=== PATIENT | male | born 1980 | race Caucasian/White ===

== ENCOUNTER 2020-06-23 20:08 | Emergency (ER) | payer OTHER, SELFPAY ==
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
[2020-06-23 21:31] VITALS: BP 146/91; PULSE 62; RESP 18; TEMP 36.1; O2SAT 98; BMI 27.1
--- NOTE | 2020-06-23 22:10 | PC.NURSE ---
PT TOOK 400MG MOTRIN 3 HOURS AGO.
[2020-06-23] MEDS: Ketorolac Tromethamine 30 MG/ML VIAL IM (23:20)
[2020-06-23] MEDS: Cyclobenzaprine HCl 5 MG TABLET PO (23:21)
--- NOTE | 2020-06-23 23:59 | ED.BACK ---
HPI - Back Pain/Injury General Chief Complaint: Back Pain/Injury Stated Complaint: BACK PAIN Time Seen by Provider: 06/23/20 23:13 Source: patient Mode of arrival: ambulatory Limitations: no limitations History of Present Illness HPI Narrative: Patient presents to ED for left-sided back pain that is worse on movement. Patient states he was chopping wood for 2 hours and while turning all of a sudden his left side of his back became tight and painful. Patient denies any blunt trauma to the abdomen or back. Patient states no nausea, abdominal pain, vomiting, fever, chills, dysuria, or hematuria. MD elicited complaint: back pain Related Data Previous Rx's Medication Instructions Recorded cyclobenzaprine 10 mg PO TID PRN #18 tab 06/24/20 naproxen 500 mg PO BID PRN #20 tab 06/24/20 Allergies Allergy/AdvReac Type Severity Reaction Status Date / Time No Known Allergies Allergy Verified 06/23/20 21:30 Review of Systems Review of Systems: Yes all other systems are reviewed and are negative Constitutional: Constitutional: Reports as per HPI and Reports no additional constitutional complaints Eyes: Eyes: Reports as per HPI and Reports no additional eye complaints ENT: Reports system reviewed and no additional complaints, except as documented and Reports as per HPI Cardiovascular: Cardiovascular: Reports as per HPI and Reports no additional cardiovascular complaints Respiratory: Respiratory: Reports as per HPI and Reports no additional respiratory complaints Gastrointestinal: Gastrointestinal: Reports as per HPI and Reports no additional gastrointestinal complaints Genitourinary: Genitourinary: Reports no additional male genitourinary complaints and Reports as per HPI Musculoskeletal: Musculoskeletal: Reports no additional musculoskeletal complaints, Reports as per HPI and Reports back pain Neurologic: Reports system reviewed and no additional complaints, except as documented and Reports as per HPI Psychiatric: Psychiatric: Reports no additional psychiatric complaints and Reports as per HPI PMF Past Medical History Medical History Disruption, ligament, knee, old Social History Social History Alcohol intake: never Smoking Status: Current every day smoker Any prior treatment program specific to substance use: No Advance Directives: No Advance Directives Information Provided: No Physical Exam Vital Signs: Vital Signs: Last Vital Signs Temp 97 F 06/23/20 21:31 Pulse 62 06/23/20 21:31 Resp 18 06/23/20 21:31 BP 146/91 H 06/23/20 21:31 Pulse Ox 98 06/23/20 21:31 Body Mass Index 27.1 Const: General: cooperative, healthy appearing, comfortable, no acute distress, well developed, alert, awake and Physically active Orientation/consciousness: patient oriented x3 HENMT: Head: Yes normal to inspection and Yes No palpable skull fracture present Eyes: General: appearance normal, both eyes and all related structures Neck: Neck: Yes normal visual inspection, Yes full ROM, Yes no lymphadenopathy, Yes no meningeal signs, Yes trachea midline and No tender Chest: Chest palpation & inspection: normal inspection of the chest and normal palpation of entire chest wall Resp: Effort & Inspection: normal respiratory effort and able to speak in complete sentences Auscultation: clear to auscultation bilaterally Cardio: Jugular venous distension: no JVD Heart sounds: S1 normal heart sound present and S2 normal heart sound present GI: Inspection: Yes normal to inspection and No abdominal wall ecchymosis Palpation (GI): Soft to palpation, not firm, nontender, no guarding and not rigid : General: No CVA tenderness and Yes no CVA tenderness Back/Spine/Pelvis: Back: no CVA tenderness, No CVA tenderness and back tenderness (Left lumbar muscular pain. Negative spine tenderness) Skin: General skin exam: no rashes or lesions noted and elasticity normal Neuro: General: patient oriented x3, no meningeal signs and CN's II-XI intact bilaterally Cranial nerves: Yes CN's II-XII intact bilaterally Extrem: General: Yes normal to inspection and Yes full ROM Psych: Appearance: grossly normal, well kempt and not disheveled Course Course Course Narrative: History physical exam indicate muscular pain. Patient will be sent for lumbar x-ray and given pain medication. Reevaluation(s) Reevaluation #1: Lumbar x-ray negative for any fracture. Patient discharged with NSAIDs and muscle relaxer. Time: 01:24 MDM - Back Pain/Injury MDM Narrative Medical decision making narrative: Back strain Discharge Plan Discharge Clinical Impression: Strain of lumbar region Patient Disposition: Home, Self-Care Instructions: Low Back Strain (ED) Additional Instructions: Return to the ED immediately for worsening back pain, urinary/bowel incontinence, paralysis of lower extremities, fever, chills, nausea, vomiting, hematuria, dysuria, or any other concerning symptoms. Prescriptions: New naproxen 500 mg tablet 500 mg PO BID PRN (Reason: pain) Qty: 20 RF: 0 cyclobenzaprine 10 mg tablet 10 mg PO TID PRN (Reason: pain) Qty: 18 RF: 0 Stand Alone Forms: Work/School Release Interventions: ED Discharge Assessment Last Done: 06/24/20 01:08 Discharge Date/Time: 06/24/20 01:09
[2020-06-24] MEDS: traMADoL HCL 50 MG TABLET PO (00:28)
== END 2020-06-24 01:09 | disposition home or self-care (01) ==
PROVIDERS: Emergency Provider Emergency Medicine Emergency Medical Services
DX: S39.012A Strain of muscle, fascia and tendon of lower back, initial encounter (principal); X50.0XXA Overexertion from strenuous movement or load, initial encounter; Y93.89 Activity, other specified; Y92.017 Garden or yard in single-family (private) house as the place of occurrence of the external cause; Y99.9 Unspecified external cause status
CPT/HCPCS: 72100; 96372; 99284; J1885

== ENCOUNTER 2020-12-09 17:24 | Emergency (ER) | payer SELFPAY ==
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
[2020-12-09 17:36] VITALS: BP 137/85; PULSE 56; RESP 16; TEMP 37; O2SAT 97; BMI 26.4
[2020-12-09] MEDS: Diphth,Pertus(ACell),Tet Adult 0.5 ML SYRINGE IM (18:47)
[2020-12-09] MEDS: Ibuprofen 800 MG TABLET PO (18:48)
[2020-12-09 19:09] LABS: MANUAL DIFF FLAG NO
[2020-12-09 19:10] LABS: Basophils Percent Auto 0.1 % (0-2); Eosinophils Absolute Auto 0.1 X10*3/uL (0.0-0.4); Eosinophils Percent Auto 1.2 % (0-4); Hematocrit 37.9 % (42-52); Hemoglobin 13.2 g/dl (14.0-18.0); Imm Gran Abs Auto 0.02 X10*3/uL (0.00-0.03); Imm Gran Pct Auto 0.2 % (0.0-0.4); Lymphocytes Absolute Auto 1.4 X10*3/uL (1.2-4.9); Lymphocytes Percent Auto 13.1 % (20-40); Mean Corpuscular HGB Conc 34.8 g/dl (31.0-36.0); Mean Corpuscular Hemoglobin 33.6 pg (27.0-33.0); Mean Corpuscular Volume 96.4 fL (80-98); Mean Platelet Volume 10.4 fL (9.4-12.4); Monocytes Absolute Auto 0.8 X10*3/uL (0.1-1.2); Monocytes Percent Auto 7.8 % (2-11); Neutrophils Absolute Auto 8.3 X10*3/uL (2.0-8.3); Neutrophils Percent Auto 77.6 % (45-73); Platelet Count 211 X10*3/uL (160-400); Red Blood Count 3.93 X10*6/uL (4.60-5.80); Red Cell Distribution Width 12.3 % (11.0-16.0); White Blood Count 10.7 X10*3/uL (4.8-10.8)
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
[2020-12-09 19:44] LABS: Anion Gap 12 (12-20); Blood Urea Nitrogen 16 mg/dL (9-16); Calcium 9.1 mg/dL (8.4-10.2); Carbon Dioxide 24 mmol/L (22-29); Chloride 108 mmol/L (96-108); Estimated Glomerular Filt Rate > 60; Glucose Random 98 mg/dL (60-115); Potassium 4.3 mmol/L (3.3-5.1); Sodium 140 mmol/L (135-145)
[2020-12-09] MEDS: Lidocaine HCl 2 % MPF 5 ML VIAL SUBCUT (20:28)
[2020-12-09] MEDS: iohexoL 350 MG/ML 100 ML INFUS..BTL 85 ML IV (20:57)
[2020-12-09] MEDS: Amoxicillin/Potassium Clav 875 MG TABLET PO (23:15)
== END 2020-12-09 23:13 | disposition home or self-care (01) ==
PROVIDERS: Nurse Practitioner Family; Emergency Provider Emergency Medicine; PCP Hospitalist
DX: S51.811A Laceration without foreign body of right forearm, initial encounter (principal); W29.8XXA Contact with other powered hand tools and household machinery, initial encounter; Y93.9 Activity, unspecified; Y92.9 Unspecified place or not applicable; Y99.9 Unspecified external cause status
CPT/HCPCS: 12002; 36415; 73090; 73201; 80048; 85025; 90471; 90715; 99284; Q9967

== ENCOUNTER 2021-01-15 04:31 | Emergency (ER) | payer SELFPAY ==
[2021-01-15 04:50] VITALS: BP 136/86; BP 150/84; PULSE 62; PULSE 72; RESP 16; TEMP 36.8; O2SAT 94; O2SAT 98; BMI 27.1
[2021-01-15 05:40] LABS: MANUAL DIFF FLAG NO
[2021-01-15 05:41] LABS: Basophils Percent Auto 0.2 % (0-2); Eosinophils Absolute Auto 0.2 X10*3/uL (0.0-0.4); Eosinophils Percent Auto 1.5 % (0-4); Hematocrit 38.8 % (42-52); Hemoglobin 13.8 g/dl (14.0-18.0); Imm Gran Abs Auto 0.03 X10*3/uL (0.00-0.03); Imm Gran Pct Auto 0.2 % (0.0-0.4); Lymphocytes Absolute Auto 1.4 X10*3/uL (1.2-4.9); Mean Corpuscular HGB Conc 35.6 g/dl (31.0-36.0); Mean Corpuscular Hemoglobin 33.8 pg (27.0-33.0); Mean Corpuscular Volume 95.1 fL (80-98); Mean Platelet Volume 10.3 fL (9.4-12.4); Monocytes Absolute Auto 0.9 X10*3/uL (0.1-1.2); Monocytes Percent Auto 7.1 % (2-11); Neutrophils Absolute Auto 10.2 X10*3/uL (2.0-8.3); Platelet Count 217 X10*3/uL (160-400); Red Blood Count 4.08 X10*6/uL (4.60-5.80); Red Cell Distribution Width 11.9 % (11.0-16.0); White Blood Count 12.7 X10*3/uL (4.8-10.8)
[2021-01-15 06:03] LABS: Alanine Aminotransferase 38 U/L (0-40); Albumin Level 4.1 g/dL (3.5-5.0); Alkaline Phosphatase 63 U/L (39-117); Anion Gap 12 (12-20); Aspartate Amino Transferase 24 U/L (5-37); Bilirubin Total 0.5 mg/dL (0.0-1.0); Blood Urea Nitrogen 23 mg/dL (9-16); Calcium 9.8 mg/dL (8.4-10.2); Carbon Dioxide 27 mmol/L (22-29); Chloride 104 mmol/L (96-108); Creatinine Clr Calc Pharmacy 129.5; Estimated Glomerular Filt Rate > 60; Glucose Random 114 mg/dL (60-115); Potassium 4.4 mmol/L (3.3-5.1); Sodium 139 mmol/L (135-145); Total Protein 6.5 g/dL (6.5-8.0)
[2021-01-15] MEDS: 0.9 % Sodium Chloride 1,000 ML 999 ML IV (06:16)
[2021-01-15 06:19] VITALS: BP 131/74; PULSE 55; RESP 15; O2SAT 96
--- NOTE | 2021-01-15 06:25 | ED_ITS ---
HPI - Nausea/Vomiting/Diarrhea General Chief complaint: Nausea/Vomiting/Diarrhea Stated complaint: BROWN VOMIT X'S 24 HOURS Time Seen by Provider: 01/15/21 05:14 Source: patient Mode of arrival: EMS History of Present Illness HPI Narrative: 40-year-old male who presents via EMS after he awoke in the middle night within significant nausea and had multiple episodes of vomiting that then turned into ?foot looked like coffee-grounds?. As per EMS, patient has had several episodes of vomiting prior to their arrival. Patient states he did eat at [employer] last night but states that he ate the same thing as everyone else. Patient sources he does drink alcohol but only had a couple of beers yesterday and endorses that this is never happened to him before. He states he is still nauseous but feeling a little bit better. Related Data Previous Rx's Medication Instructions Recorded sucralfate 100 mg/mL oral 10 ml PO BID 7 Days #140 ml 01/15/21 suspension (Carafate) Allergies Allergy/AdvReac Type Severity Reaction Status Date / Time No Known Allergies Allergy Verified 01/15/21 04:55 Review of Systems Review of Systems: Pertinent positives and negatives as stated in HPI 10 point review of systems is otherwise negative. PMFSH Past Medical History Source: nursing notes reviewed Medical History Disruption, ligament, knee, old Social History Social History Alcohol intake: never Advance Directives: No Physical Exam Vital Signs: Vital Signs: Last Vital Signs Temp 98.2 F 01/15/21 04:50 Pulse 55 01/15/21 06:19 Resp 15 01/15/21 06:19 BP 131/74 01/15/21 06:19 Pulse Ox 96 01/15/21 06:19 Body Mass Index 27.1 VITAL SIGNS: Reviewed. GENERAL: Well developed, well nourished, in no acute distress. HEAD: Normocephalic/atraumatic, EYES: PERRLA, EOMI OROPHARYNX: no oral lesions noted, posterior pharynx clear LUNGS: Normal breath sounds. No adventitious sounds or accessory muscle use. SpO2<96> CARDIOVASCULAR: Regular rate and rhythm without noted murmurs ABDOMEN: Soft, non-tender, non-distended with bowel sounds. SKIN: Inspection of the skin reveals no rashes, pallor NEUROLOGIC: Alert and oriented x 4. Strength and sensation to light touch were grossly intact x 4. Course Course Course Narrative: 40-year-old male with history and clinical presentation consistent with possible gastric irritation verses evidence of ulcer or bleeding. On review of all investigations although there is leukocytosis this is felt to be a stress response to patient's multiple episodes of nausea vomiting and the hemoglobin remains lateral to prior in comparison. On re-evaluation after patient has received IV fluid hydration he states he feels better and has done well with the GI cocktail. All results were discussed with him and he understands that an isolated episode such as this is difficult to put into context, however he is strongly encouraged to follow-up with his primary care provider to discuss possible referral to Gastroenterology. Signed out to Dr Gray. MDM - Nausea/Vomiting/Diarrhea Lab Data Result diagrams: 01/15/21 05:35 01/15/21 05:35 Labs: Lab Results 01/15/21 01/15/21 01/15/21 Range/Units 05:35 05:35 05:35 WBC 12.7 H (4.8-10.8) X10*3/uL RBC 4.08 L (4.60-5.80) X10*6/uL Hgb 13.8 L (14.0-18.0) g/dl Hct 38.8 L (42-52) % MCV 95.1 (80-98) fL MCH 33.8 H (27.0-33.0) pg MCHC 35.6 (31.0-36.0) g/dl RDW 11.9 (11.0-16.0) % Plt Count 217 (160-400) X10*3/uL MPV 10.3 (9.4-12.4) fL Immature Gran % (Auto) 0.2 (0.0-0.4) % Neut % (Auto) 80.0 H (45-73) % Lymph % (Auto) 11.0 L (20-40) % [place] % (Auto) 7.1 (2-11) % Eos % (Auto) 1.5 (0-4) % Baso % (Auto) 0.2 (0-2) % Lymph # (Auto) 1.4 (1.2-4.9) X10*3/uL [place] # (Auto) 0.9 (0.1-1.2) X10*3/uL Eos # (Auto) 0.2 (0.0-0.4) X10*3/uL Baso # (Auto) 0.0 (0.0-0.2) X10*3/uL Abs Immat Gran (auto) 0.03 (0.00-0.03) X10*3/uL Absolute Neuts (auto) 10.2 H (2.0-8.3) X10*3/uL Absolute Nucleated RBC 0.000 (0.0-0.012) X10*3/uL Nucleated RBC % (auto) 0.0 (0.0-0.2) /100WBC Sodium 139 (135-145) mmol/L Potassium 4.4 (3.3-5.1) mmol/L Chloride 104 (96-108) mmol/L Carbon Dioxide 27 (22-29) mmol/L Anion Gap 12 (12-20) BUN 23 H (9-16) mg/dL Creatinine 0.84 (0.5-1.4) mg/dL Estim Creat Clear Calc 129.5 Estimated GFR > 60 Random Glucose 114 (60-115) mg/dL Calcium 9.8 D (8.4-10.2) mg/dL Total Bilirubin 0.5 (0.0-1.0) mg/dL AST 24 (5-37) U/L ALT 38 (0-40) U/L Alkaline Phosphatase 63 (39-117) U/L Total Protein 6.5 (6.5-8.0) g/dL Albumin 4.1 (3.5-5.0) g/dL Ethyl Alcohol < 10 mg/dL Discharge Plan Discharge Clinical Impression: Nausea & vomiting Patient Disposition: Home, Self-Care Instructions: Acute Nausea and Vomiting (ED) Additional Instructions: 1. Continue to drink plenty of fluids throughout the day and only consume bland food for the next 24 hours. 2. Follow-up with your primary care provider on Saturday morning for re- evaluation. Return to the ER for acute worsening of symptoms. Prescriptions: New sucralfate [Carafate] 100 mg/mL suspension 10 ml PO BID 7 Days Qty: 140 RF: 0 Referrals: Physician,None [Primary Care Provider] - 2 days
[2021-01-15 06:27] LABS: Ethanol < 10 mg/dL
[2021-01-15] MEDS: Lidocaine HCl Viscous 2 % 15 ML SOLUTION 10 ML MUCOUS MEM (07:16)
[2021-01-15] MEDS: Magnesium Hydrox/Alum Hydrox 30 ML ORAL.SUSP PO (07:16)
[2021-01-15 07:20] VITALS: BP 152/73; PULSE 58; RESP 13; O2SAT 96
--- NOTE | 2021-01-15 07:22 | PC.NURSE ---
Pt alert and oriented, vss. Pt denies abdominal pain, he reports feeling nauseous on and off but better than when he came in. No vomiting noted/reported. Meds given as documented. Pt medically cleared for discharge.
== END 2021-01-15 07:56 | disposition home or self-care (01) ==
PROVIDERS: Student in an Organized Health Care Education/Training Program; Emergency Provider Emergency Medicine
DX: R11.2 Nausea with vomiting, unspecified (principal); Z79.899 Other long term (current) drug therapy
CPT/HCPCS: 36415; 80053; 82077; 85025; 99284

== ENCOUNTER 2023-02-05 12:13 | Emergency (ER) | payer SELFPAY ==
--- NOTE | ~2023-02-05 | XR_ITS ---
EXAMINATION: XR HAND, LEFT CLINICAL INFORMATION: Laceration/injury COMPARISON: None available. TECHNIQUE: PA, lateral, and oblique views of the left hand. FINDINGS: Large soft tissue laceration identified base of the index finger with soft tissue swelling. Underlying proximal phalanx appears intact. Chronic appearing fifth PIP narrowing and periarticular calcifications. XR/XR hand LT min 3V IMPRESSION: Index finger laceration without acute bony pathology.
[2023-02-05 12:27] VITALS: BP 159/88; PULSE 61; RESP 16; TEMP 36.7; O2SAT 95; BMI 25.1
--- NOTE | 2023-02-05 12:38 | ED_ITS ---
HPI - General Adult General Chief complaint: Wound/Laceration Stated complaint: l index finger and hand laceration Time Seen by Provider: 02/05/23 12:39 Source: patient, RN notes reviewed and old records reviewed Mode of arrival: ambulatory History of Present Illness HPI narrative: 42-year-old male with no significant past medical history presenting to the ED complaining of laceration to left hand s/p using saw [employer]. States safety guard got stuck and saw jumped cutting hand. Tetanus up-to-date. Denies injury to other area. Denies numbness/tingling or weakness. Onset (ago): hour(s) Related Data Previous Rx's Medication Instructions Recorded sucralfate 100 mg/mL oral 10 ml PO BID 7 days #140 mL 01/15/21 suspension (Carafate) Allergies Allergy/AdvReac Type Severity Reaction Status Date / Time No Known Allergies Allergy Verified 01/15/21 04:55 Review of Systems 2 Review of Systems: Constitutional: No Fever, No Chills ENT/Mouth: No Ear Pain, No Nasal Congestion, No sore throat, No Rhinorrhea, No Swallowing Difficulty Cardiovascular: No Chest Pain, No SOB Respiratory: No Cough Gastrointestinal: No Nausea, No Vomiting, No Abdominal pain Musculoskeletal: No joint pain, No Myalgias, No Joint Swelling Skin: +laceration, No rash Neuro: No Weakness, No Numbness, No Paresthesias Yes all other systems are reviewed and are negative Constitutional: Constitutional: Reports as per [facility] Past Medical History Attestation statement: The following information was validated with the patient. Source: old records reviewed Medical History Disruption, ligament, knee, old Social History Social History Alcohol intake: never Advance Directives: No Advance Directives Information Provided: No Physical Exam ED Vital Signs: Vital Signs - 24 hr 02/05/23 12:27 Temperature 98.0 F Pulse Rate 61 Respiratory Rate 16 Blood Pressure 159/88 H Pulse Oximetry 95 Oxygen Delivery Method Room Air BMI result Body Mass Index 25.1 Const General: cooperative, healthy appearing and no acute distress Orientation/consciousness: patient oriented x3 Limitations: no limitations HENMT Head: Yes normal to inspection and Yes atraumatic Ears: hearing grossly normal bilaterally General nose exam: Normal external nose present Face and sinus: Yes normal facial exam Eyes General: appearance normal, both eyes and all related structures EOM: EOMs intact bilaterally Neck Neck: Yes normal visual inspection and Yes no meningeal signs Resp Effort & Inspection: normal respiratory effort and no respiratory distress Cardio Rate: regular rate Skin Other: Please refer to images above. 4.5 cm deep laceration as noted to left 1st MCP. Underlying structures appear intact. Slightly decreased sensation to lateral aspect of the digit. FROM intact to hand/digit. Finger to thumb opposition intact Rashes: no rashes Neuro General: patient oriented x3, tone normal and no meningeal signs Cranial nerves: Yes CN's II-XII intact bilaterally Gait exam (Neuro): Normal gait present Extrem General: Yes normal to inspection Course Course Course Narrative: This is an RME: Additional HPI, ROS, PE not included below will be deferred to primary provider. 42 y o male presenting for evaluation of laceration to L hand and base of L index finger s/p working with a saw and losing control. Bleeding currently well controlled with direct pressure. No numbness or tingling. Plan -- Imaging, lac repair, EMC XR hand LT min 3V IMPRESSION: Index finger laceration without acute bony pathology. > wound repaired by PEGGY Resendiz with 8 sutures. Finger splint applied for protection. Will give patient empiric p.o. antibiotics due to dirty saw Results discussed with patient including worrisome signs and symptoms and strict return precautions, and when to return to the emergency department. They verbalized understanding and feel safe for discharge at this time. Procedures Laceration Laceration 1: Site: hand Side (If applicable): left Size (cm): 4.5 Description: linear and irregular Depth: simple, single layer Local Anesthetic: lidocaine 1% Amount of anesthesia used (mL): 6 Pre-repair: wound explored and irrigated extensively Skin layer closed with: nylon Size (cm): 4-0 Number of sutures: 8 Technique: simple, interrupted Medical Decision Making Medical Decision Making [facility] Narrative: 42-year-old male with no significant past medical history presenting to the ED complaining of laceration to left hand s/p using saw [employer]. On exam vital signs stable, NAD, nontoxic appearing, physical exam as noted above, please refer to image. Concern for possible nerve disruption. Low suspicion for tendon or ligamental injury. Lower concern for fracture Plan: X-rays ordered in triage, repair wound Please refer to course for remaining clinical decision making, interpretation of labs/imaging results, and discussions with consultants and/or family members. Differential Diagnosis Differential Diagnoses: The differential diagnosis associated with the presentation includes As above Independent Interpretation I performed an independent interpretation of an: Plain X-Ray Radiology Impression Discussion of test interpretation with radiology: I have reviewed the radiologist's reading. External Record Review External record reviewed: Inpatient record, Office record, Outpatient record, Prior outpatient labs, Prior outpatient radiology, Primary care record and Outside ED record Tests considered The following testing was considered but not selected: As above Prescription Management I considered prescription management with: Pain Medication and Antibiotic Discharge Plan Discharge Clinical Impression: Hand laceration Patient Disposition: Home, Self-Care Instructions: Laceration (DC) Additional Instructions: Your wounds were repaired today in the emergency department. Keep dry and clean. You need to return to any emergency department, urgent care, or your PCPs office in 7-10 days for suture removal Apply bacitracin and or Neosporin daily Once sutures are removed apply anti scar cream like Mederma If area begins look infected, is red, there is drainage, streaking, or you have fever please return to the emergency department Prescriptions: No Action sucralfate [Carafate] 100 mg/mL suspension 10 ml PO BID 7 Days Qty: 140 0RF Referrals: Marium Sahu MD [Physician] - (HAND SPECIALIST)
[2023-02-05] MEDS: Lidocaine HCl 1 % MPF 5 ML VIAL SUBCUT (14:31)
[2023-02-05 14:54] VITALS: BP 155/76; PULSE 60; RESP 16; TEMP 37; O2SAT 0
--- NOTE | 2023-02-05 14:58 | PC.NURSE ---
aox4. calm, coop. verbalizes decreased pain in left finger- dressingc/d/i- no numbness/tingling. +CMS. walks well. no distess
== END 2023-02-05 14:59 | disposition home or self-care (01) ==
PROVIDERS: Emergency Provider Emergency Medicine
DX: S61.412A Laceration without foreign body of left hand, initial encounter (principal); W27.0XXA Contact with workbench tool, initial encounter; Y93.89 Activity, other specified; Y92.9 Unspecified place or not applicable; Y99.9 Unspecified external cause status
CPT/HCPCS: 12042; 73130; 99284

== ENCOUNTER 2024-08-16 11:49 | Emergency (ER) | payer SELFPAY ==
[2024-08-16] VITALS (7 sets, daily range): BP systolic 120–147; BP diastolic 87–108; PULSE 62–72; RESP 17–21; TEMP 36.9–37.2; O2SAT 97–98; BMI 27.8
--- NOTE | ~2024-08-16 | CT_ITS ---
CLINICAL HISTORY: left facial neck swelling, eval for abscess vs par CT maxillofacial without contrast Comparison: None Findings: Left facial findings discussed in neck CT report. No additional soft tissue abnormalities identified. No acute fracture or dislocation identified. Paranasal sinuses and mastoid air cells clear. Mandible and TMJs are unremarkable. Ocular globes symmetric and unremarkable. Impression: Left submandibular gland abnormalities as described in neck CT report No significant facial bone abnormality This document has been electronically signed by: Yuriy Ny MD on 08/16/2024 17:20:23
--- NOTE | ~2024-08-16 | CT_ITS ---
CLINICAL HISTORY: left facial neck swelling, eval for abscess vs par CT soft tissue neck with contrast Comparison: None Findings: Enlarged heterogeneous left submandibular gland. Surrounding stranding and fluid in soft tissues. Submandibular gland duct dilation is noted. I do not specifically identify a ductal stone. Enlarged bilateral neck adenopathy, greater on left. Findings may represent an infectious sialoadenitis. Left tonsillar edema and hypertrophy noted. No definable fluid collection is identified. Adenoids and epiglottis are within normal limits. There is no prevertebral soft tissue swelling or fluid. Bilateral parotid and right submandibular gland unremarkable. Airway midline without deviation or displacement. No foreign bodies are demonstrated. Visualized upper lungs and sinuses are clear. No acute bony abnormalities demonstrated. Impression: Abnormal left submandibular gland with surrounding stranding, fluid and adenopathy Probable acute infectious sialoadenitis as above Left tonsillar edema and hypertrophy without focal fluid collection. This document has been electronically signed by: Yuriy Ny MD on 08/16/2024 17:17:57
--- NOTE | 2024-08-16 12:04 | ED_ITS ---
HPI - General Adult General Chief complaint: Dental/Oral Stated complaint: swollen cheek Time Seen by Provider: 08/16/24 15:07 Source: patient Mode of arrival: ambulatory Limitations: no limitations History of Present Illness ED Provider: Julia Santana APRN HPI narrative: This is a 43-year-old male who is healthy presents to the ER with complaints of left-sided facial pain and swelling which began last night after eating pizza. Patient denies any fevers, chills, upper respiratory symptoms, difficulty swallowing or difficulty breathing. No history of same. No dental pain. Related Data Previous Rx's ?Medication ?Instructions ?Recorded sucralfate 100 mg/mL oral 10 ml PO BID 7 days #140 mL 01/15/21 suspension (Carafate) cephalexin 500 mg capsule 500 mg PO QID 7 days #28 caps 02/05/23 clindamycin HCl 300 mg capsule 300 mg PO TID #21 caps 08/16/24 (Cleocin HCl) Allergies Allergy/AdvReac Type Severity Reaction Status Date / Time No Known Allergies Allergy Verified 08/16/24 12:07 Review of Systems 2 Review of Systems: Yes all other systems are reviewed and are negative Constitutional: Constitutional: Reports no additional constitutional complaints, Denies body ache(s), Denies chills, Denies fever(s), Denies headache(s) and Denies weakness Eyes: Eyes: Reports no additional eye complaints and Denies change in vision ENT: Reports system reviewed and no additional complaints, except as documented, Denies dizziness, Denies headache(s), Denies nasal congestion, Denies nasal discharge and Denies neck pain Cardiovascular: Cardiovascular: Reports no additional cardiovascular complaints, Denies chest pain, Denies leg edema and Denies dyspnea Respiratory: Respiratory: Reports no additional respiratory complaints, Denies cough and Denies dyspnea Gastrointestinal: Gastrointestinal: Reports no additional gastrointestinal complaints, Denies abdominal pain, Denies diarrhea, Denies nausea and Denies vomiting Genitourinary: Genitourinary: Denies urinary incontinence Musculoskeletal: Musculoskeletal: Reports no additional musculoskeletal complaints, Denies back pain, Denies arthralgias, Denies joint swelling, Denies neck pain, Denies numbness and Denies tingling Integumentary/Breasts: Skin/Breast: Reports system reviewed and no additional complaints, except as docu, Reports swelling and Denies rash Neurologic: Reports system reviewed and no additional complaints, except as documented, Denies Abnormal speech present, Denies dizziness, Denies headache(s), Denies numbness, Denies tingling and Denies weakness PMFSH Past Medical History Attestation statement: The following information was validated with the patient. Source: old records reviewed and nursing notes reviewed Medical History Disruption, ligament, knee, old Social History Social History Alcohol intake: never Advance Directives: No Advance Directives Information Provided: No Do you have a plan to hurt others: No Plan Physical Exam ED Vital Signs: Vital Signs - 24 hr 08/16/24 12:05 08/16/24 16:14 08/16/24 16:28 Temperature 98.5 F 98.5 F Pulse Rate 72 65 65 Respiratory Rate 17 18 Blood Pressure 145/108 H 120/87 143/95 H Pulse Oximetry 98 97 97 Oxygen Delivery Method Room Air Room Air Room Air 08/16/24 16:33 08/16/24 16:44 08/16/24 18:13 Temperature 98.5 F 98.4 F Pulse Rate 66 71 Respiratory Rate 20 21 H Blood Pressure 139/89 134/92 H 135/98 H Pulse Oximetry 97 97 Oxygen Delivery Method Room Air Room Air BMI result Body Mass Index 27.8 Const General: cooperative, healthy appearing, comfortable and no acute distress Orientation/consciousness: patient oriented x3 Limitations: no limitations [facility] Head: Yes normal to inspection Ears: hearing grossly normal bilaterally and TM's normal bilaterally General nose exam: Normal external nose present Face and sinus: Yes normal facial exam Mouth: Normal oral and palatal mucosa present Throat: Yes posterior oropharynx normal, Yes tonsils normal and Yes uvula midline Eyes General: appearance normal, both eyes and all related structures Pupils: Equal, round and reactive pupils present Neck Other: Left facial submandibular swelling-soft, subtle, mobile, ?parotid gland vs lymphadenopathy Neck: Yes normal visual inspection, Yes full ROM and Yes no meningeal signs Chest Chest palpation & inspection: normal inspection of the chest Resp Effort & Inspection: normal respiratory effort Auscultation: clear to auscultation bilaterally Cardio Rate: regular rate Rhythm: regular rhythm Peripheral pulses: Peripheral pulses 2+ throughout GI Inspection: Yes normal to inspection Palpation (GI): Soft to palpation and nontender Auscultation: normal bowel sounds Back/Spine/Pelvis Thoracic/Lumbar Spine: thoracic and lumbar spine normal to inspection Skin General skin exam: no rashes or lesions noted Neuro General: patient oriented x3, no meningeal signs, no focal motor deficits and normal sensation to monofilament Cranial nerves: Yes Equal, round and reactive pupils present Cognition (Neuro): normal cognition Speech: No Abnormal speech present Gait exam (Neuro): Normal gait present Motor exam (neuro): 5/5 motor strength present throughout Extrem General: Yes normal to inspection Course Course Course Narrative: This is a rapid medical exam performed by Katrin Bermudez NP: Additional HPI, ROS, PE not included below will be deferred to primary provider. 08/16/24 12:05 Patient is a 43-year-old male presenting with complaint of left sided neck pain and swelling since last night. States he was eating a piece of pizza and developed sudden onset pain. Denies dental pain. Took naproxen with little relief. Has not seen a dentist in >20 years. States the swelling happened in a matter of 10 minutes last night. BP elevated in triage, patient states he donates plasma 2x/week and BP always checked there and normal. Plan: labs, will need CT Reevaluation(s) Reevaluation #1: CT consistent with left sialoadenitis. Patient has mild leukocytosis and inflammatory markers. His initial lactic was mildly elevated but improved after receiving IV fluids. Patient is eating and drinking with no difficulty. Tolerating his own secretions. His vitals are stable. He received clindamycin while he was in the emergency room. I will discharge him home with a prescription for clindamycin and recommendations to continue supportive care. I did review worrisome signs and symptoms with him when to return to the emergency room. Comfortable plan for discharge home. Medications Administered Discontinued Medications Generic Name Dose Route Start Last Admin Trade Name Freq PRN Reason Stop Dose Admin Clindamycin Phosphate 600 mg in 50 mls @ 100 mls/hr 08/16/24 15:12 08/16/24 16:10 Cleocin IV 08/16/24 15:41 Infused ONCE ONE Infusion Sodium Chloride 1,000 mls @ 999 mls/hr 08/16/24 15:13 08/16/24 16:28 Ns IV 08/16/24 16:13 Infused .Q1H1M STA Infusion Iohexol 65 ml 08/16/24 15:40 08/16/24 15:41 Iohexol 350 Mg/Ml 100 Ml Infus..Btl IV 08/16/24 15:41 65 ml ONCE ONE Administration Ketorolac Tromethamine 15 mg 08/16/24 18:03 08/16/24 18:08 Ketorolac Tromethamine 15 Mg/Ml Vial IVPUSH 08/16/24 18:04 15 mg ONCE ONE Administration Medical Decision Making Medical Decision Making [facility] Narrative: 1512-This is a 43-year-old male who is healthy presents to the ER with complaints of left-sided facial pain and swelling which began last night after eating pizza. Patient denies any fevers, chills, upper respiratory symptoms, difficulty swallowing or difficulty breathing. No history of same. No dental pain. Left facial submandibular swelling-soft, subtle, mobile, ?parotid gland vs lymphadenopathy Will obtain labs, CT At this time infection suspected, antibiotics ordered Differential Diagnosis Differential Diagnoses: The differential diagnosis associated with the presentation includes Parotitis, lymphadenopathy, abscess, Quoc's angina Admission/Observation Consideration of admission/observation: Escalation of care including admission/observation considered Lab Data [facility] Lab Attestation statement: I reviewed the patient's lab results. 08/16/24 12:20 08/16/24 12:20 Labs: Lab Results 08/16/24 08/16/24 08/16/24 Range/Units 12:20 15:30 17:56 WBC 12.2 H (4.8-10.8) X10*3/uL RBC 4.87 (4.60-5.80) X10*6/uL Hgb 16.5 (14.0-18.0) g/dl Hct 47.0 (42.0-52.0) % MCV 96.5 (80.0-98.0) fL MCH 33.9 H (27.0-33.0) pg MCHC 35.1 (31.0-36.0) g/dl RDW 11.8 (11.0-16.0) % Plt Count 219 (160-400) X10*3/uL MPV 10.1 (9.4-12.4) fL Immature Gran % (Auto) 0.3 (0.0-0.4) % Neut % (Auto) 76.3 H (45-73) % Lymph % (Auto) 12.1 L (20-40) % [place] % (Auto) 9.4 (2-11) % Eos % (Auto) 1.6 (0-4) % Baso % (Auto) 0.3 (0-2) % Lymph # (Auto) 1.5 (1.2-4.9) X10*3/uL [place] # (Auto) 1.2 (0.1-1.2) X10*3/uL Eos # (Auto) 0.2 (0.0-0.4) X10*3/uL Baso # (Auto) 0.0 (0.0-0.2) X10*3/uL Abs Immat Gran (auto) 0.04 H (0.00-0.03) X10*3/uL Absolute Neuts (auto) 9.3 H (2.0-8.3) x10*3/uL Absolute Nucleated RBC 0.000 (0.0-0.012) X10*3/uL Nucleated RBC % (auto) 0.0 (0.0-0.2) /100WBC ESR 1 (0-15) MM/HR Sodium 140 (135-145) mmol/L Potassium 4.1 (3.3-5.1) mmol/L Chloride 106 (96-108) mmol/L Carbon Dioxide 26 (22-29) mmol/L Anion Gap 12 (12-20) BUN 13 (9-16) mg/dL Creatinine 0.99 (0.5-1.4) mg/dL Estim Creat Clear Calc 106.6 Estimated GFR > 60 Random Glucose 103 (60-115) mg/dL Lactic Acid 2.3 H* (0.5-2.0) mmol/L Lactic Acid F/U @ 2Hr 0.7 (0.5-2.0) mmol/L Calcium 9.3 (8.4-10.2) mg/dL Total Bilirubin 0.9 (0.0-1.0) mg/dL AST 42 H (5-37) U/L ALT 89 H (0-40) U/L Alkaline Phosphatase 81 (39-117) U/L C-Reactive Protein 3.15 H (< or = 0.50) mg/dL Total Protein 6.3 L (6.5-8.0) g/dL Albumin 4.0 (3.5-5.0) g/dL Independent Interpretation I performed an independent interpretation of an: CT Scan Interpretation: I independently viewed the CT scan agree with the radiology report Radiology Impression Discussion of test interpretation with radiology: I have reviewed the radiologist's reading. Radiologist Impression: [address] [address] [address] Scan Report Signed Patient: Jose Antonio Ramos MR#: [id number] : 1980 Acct:[id number] Age/Sex: 43 / M ADM Date: 08/16/24 Loc: .ED Attending Dr: Ordering Physician: Julia Santana NP Date of Service: 08/16/24 Procedure(s): CT soft tissue neck w IV con Accession Number(s): [id number] cc: Julia Santana NP; Physician,None ~ Report Number: [id number]: Total DLP = 723.41 mGy-cm CLINICAL HISTORY: left facial neck swelling, eval for abscess vs par CT soft tissue neck with contrast Comparison: None Findings: Enlarged heterogeneous left submandibular gland. Surrounding stranding and fluid in soft tissues. Submandibular gland duct dilation is noted. I do not specifically identify a ductal stone. Enlarged bilateral neck adenopathy, greater on left. Findings may represent an infectious sialoadenitis. Left tonsillar edema and hypertrophy noted. No definable fluid collection is identified. Adenoids and epiglottis are within normal limits. There is no prevertebral soft tissue swelling or fluid. Bilateral parotid and right submandibular gland unremarkable. Airway midline without deviation or displacement. No foreign bodies are demonstrated. Visualized upper lungs and sinuses are clear. No acute bony abnormalities demonstrated. Impression: Abnormal left submandibular gland with surrounding stranding, fluid and adenopathy Probable acute infectious sialoadenitis as above Left tonsillar edema and hypertrophy without focal fluid collection. This document has been electronically signed by: Yuriy Ny MD on 08/16/2024 17:17:57 Discharge Plan Discharge Clinical Impression: Sialoadenitis Patient Disposition: Home, Self-Care Instructions: Sialoadenitis (ED) Additional Instructions: suck on sour candies Take ibuprofen every 6 hours with food for the next few days to help with inflammation and pain Start your clindamycin tomorrow Return to the emergency room for any worsening symptoms as discussed Prescriptions: New clindamycin HCl [Cleocin HCl] 300 mg capsule 300 mg PO TID Qty: 21 0RF No Action sucralfate [Carafate] 100 mg/mL suspension 10 ml PO BID 7 Days Qty: 140 0RF cephalexin 500 mg capsule 500 mg PO QID 7 Days Qty: 28 0RF Referrals: Physician,None [Primary Care Provider] - 1 week Print Language: Macanese
[2024-08-16 12:25] LABS: MANUAL DIFF FLAG NO
[2024-08-16 12:26] LABS: Basophils Percent Auto 0.3 % (0-2); Eosinophils Absolute Auto 0.2 X10*3/uL (0.0-0.4); Eosinophils Percent Auto 1.6 % (0-4); Hemoglobin 16.5 g/dl (14.0-18.0); Imm Gran Abs Auto 0.04 X10*3/uL (0.00-0.03); Imm Gran Pct Auto 0.3 % (0.0-0.4); Lymphocytes Absolute Auto 1.5 X10*3/uL (1.2-4.9); Lymphocytes Percent Auto 12.1 % (20-40); Mean Corpuscular HGB Conc 35.1 g/dl (31.0-36.0); Mean Corpuscular Hemoglobin 33.9 pg (27.0-33.0); Mean Corpuscular Volume 96.5 fL (80.0-98.0); Mean Platelet Volume 10.1 fL (9.4-12.4); Monocytes Absolute Auto 1.2 X10*3/uL (0.1-1.2); Monocytes Percent Auto 9.4 % (2-11); Neutrophils Absolute Auto 9.3 x10*3/uL (2.0-8.3); Neutrophils Percent Auto 76.3 % (45-73); Platelet Count 219 X10*3/uL (160-400); Red Blood Count 4.87 X10*6/uL (4.60-5.80); Red Cell Distribution Width 11.8 % (11.0-16.0); White Blood Count 12.2 X10*3/uL (4.8-10.8)
[2024-08-16 12:47] LABS: Alanine Aminotransferase 89 U/L (0-40); Alkaline Phosphatase 81 U/L (39-117); Anion Gap 12 (12-20); Aspartate Amino Transferase 42 U/L (5-37); Bilirubin Total 0.9 mg/dL (0.0-1.0); Blood Urea Nitrogen 13 mg/dL (9-16); C Reactive Protein 3.15 mg/dL (< or = 0.50); Calcium 9.3 mg/dL (8.4-10.2); Carbon Dioxide 26 mmol/L (22-29); Chloride 106 mmol/L (96-108); Creatinine Clr Calc Pharmacy 106.6; Estimated Glomerular Filt Rate > 60; Glucose Random 103 mg/dL (60-115); Potassium 4.1 mmol/L (3.3-5.1); Sodium 140 mmol/L (135-145); Total Protein 6.3 g/dL (6.5-8.0)
[2024-08-16 13:04] LABS: Erythrocyte Sedimentation Rate 1 MM/HR (0-15)
--- NOTE | 2024-08-16 15:12 | PC.NURSE ---
PT WBC 12.2 awaiting Lactic Acid results.
[2024-08-16] MEDS: Clindamycin Phosphate/D5W 600 MG/50 ML PIGGYBACK 100 MG IV (15:35)
[2024-08-16] MEDS: 0.9 % Sodium Chloride 1,000 ML 999 ML IV (15:38)
[2024-08-16] MEDS: iohexoL 350 MG/ML 100 ML INFUS..BTL 65 ML IV (15:41)
[2024-08-16 16:20] LABS: Lactic Acid 2.3 mmol/L (0.5-2.0)
[2024-08-16 17:36] LABS: Reflex Lactate? Lactic Acid Added
[2024-08-16] MEDS: Ketorolac Tromethamine 15 MG/ML VIAL IVPUSH (18:08)
[2024-08-16 18:23] LABS: ~Lactic Acid-LAB USE ONLY 0.7 mmol/L (0.5-2.0)
== END 2024-08-17 01:15 | disposition home or self-care (01) ==
PROVIDERS: Nurse Practitioner Family; Registered Nurse Emergency; Emergency Provider Emergency Medicine
DX: K11.20 Sialoadenitis, unspecified (principal); R51.9 Headache, unspecified; M54.2 Cervicalgia; D72.829 Elevated white blood cell count, unspecified
CPT/HCPCS: 36415; 70487; 70491; 80053; 83605; 85025; 85652; 86140; 87040; 96365; 96375; 99284; J0736; J1885; Q9967

== ENCOUNTER → 2024-08-16 15:13 | Outpatient (BNV) | payer SELFPAY | PROVIDERS: Emergency Provider Emergency Medicine; Visit Provider Radiology Diagnostic Radiology | DX: R22.1 Localized swelling, mass and lump, neck (principal); R22.0 Localized swelling, mass and lump, head | CPT/HCPCS: 70487; 70491 ==